=== PATIENT | male | born 1940 | race Caucasian/White ===

== ENCOUNTER 2017-04-09 06:33 | Day surgery (SDC) | payer MEDICARE ==
[~2017-04-09 06:33] MED LIST: Acetaminophen TAB* 325 MG PO PRN; Buffered Lidocaine 0.9% SYRIN* 5 ML/SYR SYRINGE INTRADERM ONE
[2017-04-09] MEDS ORDERED: fentaNYL* 50 MCG/ML 2 ML VIAL (100 MCG VIAL) ONE (07:21)
[2017-04-09] MEDS ORDERED: Midazolam* 1 MG/ML 2 ML VIAL (2 MG) ONE (07:21)
[2017-04-09 08:21] VITALS: BP 141/58
[2017-04-09] MEDS ORDERED: Phenylephrine 2.5% OPTH.SOL* 2 ML BTL ONE (08:52)
[2017-04-09] MEDS ORDERED: Povidone Iodine 5% OPTH* 30 ML BTL ONE (08:52)
[2017-04-09] MEDS ORDERED: Cyclopentolate 1% OPTH.SOL* 2 ML BTL ONE (08:52)
[2017-04-09] MEDS ORDERED: Ketorolac 0.5% OPHTH (NF) 0.5 % 5 ML BTL ONE (08:52)
[2017-04-09] MEDS ORDERED: Neomycin/Polymy/Dex OPTH.SUSP* MAXITROL 0.1% 5 ML ONE (08:52)
[2017-04-09] MEDS ORDERED: Buffered Lidocaine 0.9% SYRIN* 5 ML/SYR SYRINGE ONE (08:52)
[2017-04-09] MEDS ORDERED: Lidocaine 1% MPF* 2 ML VIAL ONE (08:52)
[2017-04-09] MEDS ORDERED: acetaZOLAMIDE TAB* 250 MG ONE (08:52)
[2017-04-09] MEDS ORDERED: Proparacaine 0.5% OPHTH.SOL* 15 ML BTL ONE (08:52)
--- NOTE | 2017-04-09 10:12 | OP ---
OPERATIVE NOTE: DATE OF OPERATION: 04/09/17 DATE OF : 36 SURGEON: Que Conn M.D. PREOPERATIVE DIAGNOSIS: Cataract, right eye. POSTOPERATIVE DIAGNOSIS: Cataract, right eye. OPERATIVE PROCEDURE: Phacoemulsification, right eye, with IOL and CTR. PROCEDURE: The patient was brought to the operating room after being given 1/2% Alcaine with epinep hrine drops in the preoperative area. The eye was prepped and draped in the usual sterile fashion. Sterile drape and eyelid speculum were placed. Again, topical 1/2% Alcaine with epinephrine was gi mauricio. A paracentesis incision was made at the 9 o'clock position with the No.75 blade. Clear cornea incision 2.2 x 2.2-mm was created at the 12 o'clock position starting at the anterior limbus using the 2.2-mm keratome. The anterior chamber was irrigated with 0.4 mL of 1% non-preservative intracam eral lidocaine and filled with DisCoVisc. A capsulorrhexis was completed using the cystotome and th e Utrata forceps. Hydrodissection was performed with balanced salt solution. The lens nucleus was r emoved with the Phacoemulsification handpiece without incident. Cortex was removed with the irrigat ion-aspiration handpiece. The capsular bag was re-inflated using DisCoVisc and an [id number] implant inserted with a shooter followed by CTR11 inserted with the shooter into the capsular bag. 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 The irrigation-aspirat ion handpiece was used to remove all residual DisCoVisc. The eye was refilled with balanced salt so lution and the wound checked and found to be watertight. Topical Maxitrol drops were given. [id number] #: [id number]
== END 2017-04-09 08:34 | disposition home or self-care (01) ==
LOC: OREAST 06:33
PROVIDERS: ATTEND Specialist
DX: H25.11 Age-related nuclear cataract, right eye (principal); H35.371 Puckering of macula, right eye; H33.8 Other retinal detachments; E11.9 Type 2 diabetes mellitus without complications; Z79.84 Long term (current) use of oral hypoglycemic drugs; Z87.891 Personal history of nicotine dependence; G47.33 Obstructive sleep apnea (adult) (pediatric); I10 Essential (primary) hypertension; I25.10 Atherosclerotic heart disease of native coronary artery without angina pectoris; R01.1 Cardiac murmur, unspecified
CPT/HCPCS: A9270-GY; J2250; J3010; V2632